=== PATIENT | male | born 1940 | race Caucasian/White ===

== ENCOUNTER 2017-12-31 09:24 | Day surgery (SDC) | payer MEDICARE ==
[~2017-12-31] VITALS: Ht 180.3 cm; Wt 96.4 kg
[2017-12-31 09:50] VITALS: BP 125/74
[2017-12-31] MEDS ORDERED: LEVO150T5 PO (10:04)
[2017-12-31] MEDS ORDERED: ASPI-621 PO (10:04)
[2017-12-31] MEDS ORDERED: METO25TA35 PO (10:04)
[2017-12-31] MEDS ORDERED: ROSU5TAB PO (10:04)
[2017-12-31] MEDS ORDERED: BIVALIRUDIN 250 MG ONE (11:04)
[2017-12-31] MEDS ORDERED: VERAPAMIL 2.5 MG/ML, 2ML ONE (11:04)
[2017-12-31] MEDS ORDERED: FENTANYL PF 100 MCG/2ML ONE (11:04)
[2017-12-31] MEDS ORDERED: MIDAZOLAM 1 MG/ML, 5ML ONE (11:04)
[2017-12-31] MEDS ORDERED: TICAGRELOR 90 MG TABLET ONE (11:04)
[2017-12-31] MEDS ORDERED: NITROGLYCERIN 5 MG/ML, 10ML ONE (11:04)
[2017-12-31] MEDS ORDERED: HEPARIN 1,000 UNITS/ML, 10ML ONE (11:04)
[2017-12-31] MEDS ORDERED: LIDOCAINE/PF 1%, 30ML ONE (11:04)
[2017-12-31] MEDS ORDERED: ACETAMINOPHEN 325 MG TABLET PO PRN (12:30)
== END 2017-12-31 15:37 ==
LOC: CACL 09:24
PROVIDERS: ATTEND Internal Medicine Cardiovascular Disease
DX: I25.10 Atherosclerotic heart disease of native coronary artery without angina pectoris (principal); Z95.1 Presence of aortocoronary bypass graft; E78.5 Hyperlipidemia, unspecified; E03.9 Hypothyroidism, unspecified
CPT/HCPCS: 93459; 99156; 99157; C1760; C1769; C1894; J1644; J2250; J3010; J3490; Q9967; J0583

== ENCOUNTER → 2018-01-10 | Outpatient (CLI) | payer MEDICARE ==
[~2018-01-10] MED LIST: ASPI-621 PO; LEVO150T5 PO; METO25TA35 PO; OMNIPAQUE 350 MG/ML, 150 ML BOTTLE ONE; ROSU5TAB PO
== END | disposition home or self-care (01) ==
LOC: RAD 12:16
PROVIDERS: ATTEND Internal Medicine Cardiovascular Disease
DX: J84.10 Pulmonary fibrosis, unspecified (principal); I70.8 Atherosclerosis of other arteries; I65.23 Occlusion and stenosis of bilateral carotid arteries; I10 Essential (primary) hypertension; E78.5 Hyperlipidemia, unspecified; K57.30 Diverticulosis of large intestine without perforation or abscess without bleeding; Z87.891 Personal history of nicotine dependence; Z90.49 Acquired absence of other specified parts of digestive tract
CPT/HCPCS: 71275; 74174; 93880; 94060; 94726; 94729; Q9967

== ENCOUNTER → 2018-01-24 | Outpatient (CLI) | payer MEDICARE ==
[~2018-01-24] MED LIST changes: +CLOP75TA PO; -OMNIPAQUE 350 MG/ML, 150 ML BOTTLE ONE
[2018-01-24 11:38] LABS: BASOPHILS # (AUTO) 0.02 x10^3/uL (0-0.1); BASOPHILS % (AUTO) 0 % (0-1); EOSINOPHILS # (AUTO) 0.15 x10^3/uL (0-0.4); EOSINOPHILS % (AUTO) 2 % (1-7); LYMPHOCYTES # (AUTO) 1.58 x10^3/uL (1-3.4); LYMPHOCYTES % (AUTO) 22 % (22-44); MD NO; MEAN CORPUSCULAR HEMOGLOBIN 32.3 pg (27.5-34.5); MEAN CORPUSCULAR HGB CONC 34.6 g/dL (33.2-36.2); MEAN CORPUSCULAR VOLUME 93.4 fL (81-97); MEAN PLATELET VOLUME 8.4 fL (7.4-10.4); MONOCYTES # (AUTO) 0.46 x10^3/uL (0.2-0.8); MONOCYTES % (AUTO) 7 % (2-9); NEUTROPHILS # (AUTO) 4.85 x10^3/uL (1.8-6.8); NEUTROPHILS % (AUTO) 69 % (42-75); PLATELET COUNT 207 x10^3/uL (130-400); RED BLOOD COUNT 5.13 x10^6/uL (4.38-5.82); RED CELL DISTRIBUTION WIDTH 12.8 % (9.4-14.8)
[2018-01-24 11:45] LABS: INTERNATIONAL NORMALIZED RATIO 0.97 (0.93-1.1)
[2018-01-24 11:50] LABS: ANION GAP 6 mmol/L (5-15); CHLORIDE 106 mmol/L (98-107)
[2018-01-24 11:53] LABS: CREATININE 1.22 mg/dL (0.7-1.3)
[2018-01-24 11:54] LABS: ALANINE AMINOTRANSFERASE 30 U/L (12-78); ALKALINE PHOSPHATASE 75 U/L (45-117); BILIRUBIN,TOTAL 0.8 mg/dL (0.2-1.0); TOTAL PROTEIN 7.9 g/dL (6.4-8.2)
== END | disposition home or self-care (01) ==
LOC: STAR 10:42
PROVIDERS: ATTEND Internal Medicine Cardiovascular Disease
DX: Z01.818 Encounter for other preprocedural examination (principal); I35.0 Nonrheumatic aortic (valve) stenosis
CPT/HCPCS: 36415; 80053; 85025; 85610; 85730; 93005

== ENCOUNTER → 2018-02-26 | Outpatient (CLI) | payer MEDICARE | END | disposition home or self-care (01) | LOC: CVU 10:06 | PROVIDERS: ATTEND Internal Medicine Cardiovascular Disease | DX: I35.0 Nonrheumatic aortic (valve) stenosis (principal); I10 Essential (primary) hypertension; E78.5 Hyperlipidemia, unspecified; Z95.1 Presence of aortocoronary bypass graft | CPT/HCPCS: 93306 ==

== ENCOUNTER 2019-03-18 10:25 | Outpatient (CLI) | payer MEDICARE | END 2019-03-18 23:59 | disposition home or self-care (01) | LOC: CFH 10:25 | PROVIDERS: ATTEND Internal Medicine Cardiovascular Disease | DX: T82.03XA Leakage of heart valve prosthesis, initial encounter (principal); I10 Essential (primary) hypertension; E78.5 Hyperlipidemia, unspecified; Z86.73 Personal history of transient ischemic attack (TIA), and cerebral infarction without residual deficits | CPT/HCPCS: 93306 ==